=== PATIENT | male | born 1980 | race Caucasian/White ===

== ENCOUNTER 2018-12-05 09:05 | Day surgery (SDC) | payer BC ==
[2018-12-05] MEDS ORDERED: Bupivacaine 0.5% 50 ML IJ ONE (10:12)
[2018-12-05] MEDS ORDERED: Lidocaine 1% Inj (20ml) ONE (10:12)
--- NOTE | 2018-12-05 11:06 | PCM.SURG1 ---
Surgeon's Initial Post Op Note - Surgeon's Notes Surgeon: Dr. Peck Pit Worker Power Shovel: Dr. Bledsoe PGY3 Type of Anesthesia: Local Pre-Operative Diagnosis: Left Leg Mass Operative Findings: Left leg cyst Post-Operative Diagnosis: Left leg cyst Operation Performed: Exscsion of left leg cyst Specimen/Specimens Removed: Left leg cyst Estimated Blood Loss: EBL {In ML}: 4 Blood Products Given: N/A Drains Used: No Drains Post-Op Condition: Good Date of Surgery/Procedure: 12/05/18 Time of Surgery/Procedure: 11:05
[2018-12-05 11:12] VITALS: BP 120/80; PULSE 73; RESP 16; TEMP 98.3; O2SAT 97
--- NOTE | 2018-12-11 23:13 | OP ---
PROCEDURE DATE: 12/05/2018 SURGEON: Kevin Peck MD PROCESS DEVELOPMENT ASSOCIATE: Danny Cerrato DO DESCRIPTION OF PROCEDURE: In the operating room, the patient was identified by name, name of procedure, laterality, and my stan. With IV sedation, the area was mapped out after being prepped before being infiltrated with 1% Xylocaine and Marcaine. Time-out was successfully taken. The area was then taken out with an ellipse. The incisions were raised proximally and distally. The incisions were then closed primarily with deep Vicryl followed by subcuticular PDS and Dermabond. The patient was taken to the recovery room in good condition after the sponge and needle counts were declared correct. Kevin Peck MD
== END 2018-12-05 11:41 | disposition home or self-care (01) ==
LOC: OPSURG 09:05
PROVIDERS: ATTEND Surgery
DX: D23.72 Other benign neoplasm of skin of left lower limb, including hip (principal); E11.9 Type 2 diabetes mellitus without complications